=== PATIENT | female | born 1985 | race Caucasian/White ===

== ENCOUNTER 2020-02-22 03:02 | Emergency (ER) | payer OTHER, SELFPAY ==
--- NOTE | ~2020-02-22 | XR_ITS ---
EXAMINATION: XR chest 2V DATE: 02/22/2020 03:39 INDICATION: Left-sided chest pain TECHNIQUE: PA and lateral views of the chest were obtained. COMPARISON: None FINDINGS: The lungs are clear with no focal airspace opacities, pulmonary edema, pleural effusion or pneumothor ax. The cardiomediastinal silhouette is normal. Mild thoracic spondylosis. IMPRESSION: 1. No acute cardiopulmonary disease. Reviewed, dictated and finalized at location A.
[2020-02-22 03:09] VITALS: BP 158/79; PULSE 101; RESP 27; TEMP 36.7; O2SAT 100
--- NOTE | 2020-02-22 03:09 | PC.NURSE ---
PT REFUSED IV OR MEDICATIONS. MD YANES MADE AWARE.
--- NOTE | 2020-02-22 03:14 | ECG_ITS ---
Measurements Intervals Ellery Rate: 110 P: 57 CT: 178 QRS: 69 QRSD: 93 T: 15 QT: 330 QTc: 447 Interpretive Statements SINUS TACHYCARDIA NONSPECIFIC ST & T-WAVE ABNORMALITY- ANTEROLAT/INF LEADS BASELINE ARTIFACT- II, III, AVF, V3 ABNORMAL ECG Electronically Signed On 02-22-2020 7:11:34 CDT by Tomasz Mcgrath D.O.
--- NOTE | 2020-02-22 03:15 | ED.GENADULT ---
HPI - General Adult General Chief complaint: Anxiety Stated complaint: anxiety, cp Time Seen by Provider: 02/22/20 03:09 Source: RN notes reviewed History of Present Illness HPI narrative: Patient presents emergency department from home for anxiety. Patient states that this evening she was seen in her computer during calculus at work when she began to feel anxious and began to cry. She states that this was followed by tingling her hands and then pain in the left side of her chest felt like a coldness. Patient states that that time she began to read on Web [facility] about her symptoms and decided come to the ER for further evaluation. She denies any fevers or chills shortness of breath abdominal pain nausea vomiting or any other symptoms Related Data Home Medications Medication Instructions Recorded Confirmed dextroamphetamine-amphetamine PO 02/22/20 Allergies Allergy/AdvReac Type Severity Reaction Status Date / Time Opioids-Meperidine and Allergy Severe Dyspnea / Verified 02/22/20 03:12 Related SOB codeine Allergy Unknown TIGHT Verified 02/22/20 03:12 FEELING IN CHEST tramadol Allergy Unknown NAUSEATED Verified 02/22/20 03:12 Review of Systems Review of Systems: Narrative: Gen.: Denies fevers or chills ENT: Denies congestion Respiratory: Denies shortness of breath or cough CV: Reports chest pain GI: Denies abdominal pain nausea, emesis or diarrhea Musculoskeletal: Denies back pain or muscle pain Neuro: Denies numbness, tingling, weakness or focal weakness Skin: Denies rash Psych: Reports anxiety Except as documented, all other systems reviewed and negative PMFSH Past Medical History Medical History (Updated 02/22/20 @ 06:30 by Gordon Posadas DO) Patient denies significant medical history Social History Social History (Updated 02/22/20 @ 03:16 by Gordon Posadas DO) Smoking status: Never smoker Gender identity (if verbalized by the patient): Female Exam Narrative: Exam Narrative: APPEARANCE: Anxious in appearance, tearful in bed, EYES: EOMI HEENT: Normocephalic, atraumatic, OMM RESPIRATORY: No respiratory distress Clear to auscultation bilaterally with no rhonchi wheezing or rales. CARDIOVASCULAR: Regular rate and rhythm without murmurs rubs or gallops. ABDOMINAL: Soft, nontender, nondistended, no rebound or guarding MUSCULOSKELETAl: Moves all extremities. No clubbing, cyanosis or edema. NEURO: Awake and alert. Following commands, speech normal, no focal deficits SKIN:: Warm, dry. No rashes lesions or abrasions PSYCHIATRIC: Anxious in appearance Course Course Emergency Course: Patient refusing IV or Ativan Patient states she is feeling better this time Discussed with patient results of workup and diagnosis. Discussed need for follow-up with primary care, proper use of medication, and reasons to return to the emergency department. Patient understands and agrees to current treatment plan Vital Signs Vital signs: Vital Signs Temperature 98.1 F 02/22/20 03:09 Pulse Rate 101 H 02/22/20 03:09 Respiratory Rate 27 H 02/22/20 03:09 Blood Pressure 158/79 H 02/22/20 03:09 Pulse Oximetry 100 02/22/20 03:09 Temperature 98.1 F 02/22/20 03:09 Pulse Rate 76 02/22/20 06:01 Respiratory Rate 20 02/22/20 06:01 Blood Pressure 120/64 02/22/20 06:01 Pulse Oximetry 99 02/22/20 06:01 Medical Decision Making MDM Narrative Medical decision making narrative: Patient's EKGs and labs are without significant high risk changes. Cardiac risk factors reviewed. Patient is felt likely low risk for ACS and reasonable for further risk stratification testing as an outpatient. Pain was not sudden or maximal in onset without tearing or ripping quality. No other signs of symptoms suggest aortic dissection. A low-risk Wells criteria is noted, PE is felt to be unlikely. No pneumonia seen on evaluation today. Patient is felt to be a reasonable candidate for continued evaluation as an ou
[2020-02-22 03:34] LABS: Basophils Absolute Auto 0.1 K/mm3 (0.0-0.1); Basophils Percent Auto 0.7 % (0.2-1.2); Eosinophils Absolute Auto 0.6 K/mm3 (0-0.3); Eosinophils Percent Auto 5.8 % (0-4.4); Hematocrit 37.6 % (37.0-47.0); Hemoglobin 13.2 g/dL (12.0-15.0); Immature Granulocyte Absolute 0.03 K/mm3 (0.00-0.031); Immature Granulocyte Percent A 0.3 % (0-0.5); Lymphocytes Absolute Auto 4.34 K/mm3 (0.9-3.2); Mean Corpuscular HGB Conc 35.1 g/dl (32-36); Mean Corpuscular Volume 91.3 fl (80-100); Monocytes Absolute Auto 0.5 K/mm3 (0.1-0.6); Monocytes Percent Auto 5.7 % (2.6-8.5); Neutrophils Absolute Auto 3.9 K/mm3 (1.3-6.7); Neutrophils Percent Auto 41.5 % (45.5-73.1); Platelet Count Result 262 k/mm3 (150-375); Red Blood Count 4.12 M/mm3 (4.2-5.4); Red Cell Distribution Width 12.1 % (11.5-14.5); White Blood Count 9.4 K/mm3 (4.5-10.0)
[2020-02-22 03:46] LABS: Blood Urea Nitrogen 11 mg/dL (7-17); Calcium 9.3 mg/dL (8.4-10.2); Carbon Dioxide 24 mmol/L (22-30); Chloride 103 mmol/L (98-107); Estimated Glomerular Filt Rate > 60; Glucose 111 mg/dL (65-105); Sodium 136 mmol/L (137-145)
[2020-02-22 03:51] LABS: INR 0.9; Prothrombin Time 12.2 Seconds (11.1-14.7)
[2020-02-22 03:52] LABS: Partial Thromboplastin Time 25.5 SECONDS (22.3-36.8)
[2020-02-22 03:58] LABS: Troponin I < 0.012 ng/mL (0.000-0.034)
[2020-02-22 04:01] VITALS: BP 126/79; PULSE 84; RESP 17; O2SAT 96
[2020-02-22 05:01] VITALS: BP 125/69; PULSE 87; RESP 19; O2SAT 100
[2020-02-22 06:01] VITALS: BP 120/64; PULSE 76; RESP 20; O2SAT 99
[2020-02-22 06:21] LABS: Troponin I < 0.012 ng/mL (0.000-0.034)
== END 2020-02-22 06:32 | disposition home or self-care (01) ==
PROVIDERS: Emergency Provider Emergency Medicine
DX: F41.9 Anxiety disorder, unspecified (principal); R07.9 Chest pain, unspecified; R00.0 Tachycardia, unspecified
CPT/HCPCS: 36415; 71046; 80048; 81025; 84484; 85025; 85610; 85730; 93005; 99284

== ENCOUNTER 2020-04-24 22:05 | Emergency (ER) | payer OTHER, SELFPAY ==
[2020-04-24 22:42] VITALS: BP 153/78; PULSE 81; RESP 20; TEMP 36.7; O2SAT 98
--- NOTE | 2020-04-25 00:29 | ED.EAR ---
HPI - Ear Problem General Chief complaint: Ear Stated complaint: left ear infection, facial swelling. Time Seen by Provider: 04/24/20 23:59 History of Present Illness HPI Narrative: Patient is a 34-year-old female who presents ER with left ear pain. Ongoing for last 2 days. Diagnosed with otitis externa. Given eardrops to treat it. She has lymphadenopathy to the periauricular region. No fevers or chills or sweats. Caused by sleeping with her ear pods then. No drainage. Has muffled hearing. Has been taking ibuprofen for pain without significant relief. Related Data Home Medications Medication Instructions Recorded Confirmed dextroamphetamine-amphetamine PO 02/22/20 Allergies Allergy/AdvReac Type Severity Reaction Status Date / Time Opioids-Meperidine and Allergy Severe Dyspnea / Verified 02/22/20 03:12 Related SOB codeine Allergy Unknown TIGHT Verified 02/22/20 03:12 FEELING IN CHEST tramadol Allergy Unknown NAUSEATED Verified 02/22/20 03:12 Review of Systems Constitutional: Constitutional: Denies fever(s) and Denies weakness ENT: Denies dizziness Comments: Left ear pain with enlarged lymph nodes. Muffled hearing PMFSH Past Medical History Medical History (Updated 04/25/20 @ 00:33 by Juan José Wall MD) ADHD Anxiety Surgical History Surgical History (Updated 04/25/20 @ 00:30 by Juan José Wall MD) No history of previous surgery Social History Social History (Updated 02/22/20 @ 03:16 by Gordon Posadas DO) Smoking status: Never smoker Gender identity (if verbalized by the patient): Female Exam Narrative: Exam Narrative: GENERAL: Well-appearing, well-nourished, and in no acute distress. HEAD: Normocephalic, atraumatic. EYES: PERRLA and EOMI. ENT: Mucous membranes moist. Anterior posterior auricular lymphadenopathy on the left side. Edematous ear canal on the left side with tenderness with manipulation of the ear. Unable to visualize the tympanic membrane due to discomfort. Right ear canal and tympanic membrane normal appearance. NEURO: Alert and oriented x3. PSYCH: Normal mood and affect. Course Course Emergency Course: Patient reports she cannot take opiate medication because it makes her feel like she cannot breathe. Discussed we would not be prescribing any opiates then. Discussed the intervals which she should be taking ibuprofen as well as Tylenol to treat her pain. She may also try applying ice packs and cool rags. Vital Signs Vital signs: Vital Signs Temperature 98.1 F 04/24/20 22:42 Pulse Rate 81 04/24/20 22:42 Respiratory Rate 04/24/20 22:42 Blood Pressure 153/78 H 04/24/20 22:42 Pulse Oximetry 98 04/24/20 22:42 Temperature 98.1 F 04/24/20 22:42 Pulse Rate 81 04/24/20 22:42 Respiratory Rate 20 04/24/20 22:42 Blood Pressure 153/78 H 04/24/20 22:42 Pulse Oximetry 98 04/24/20 22:42 Medical Decision Making Vital Signs Vital Signs: Vital Signs Temperature 98.1 F 04/24/20 22:42 Pulse Rate 81 04/24/20 22:42 Respiratory Rate 04/24/20 22:42 Blood Pressure 153/78 H 04/24/20 22:42 Pulse Oximetry 98 04/24/20 22:42 Temperature 98.1 F 04/24/20 22:42 Pulse Rate 81 04/24/20 22:42 Respiratory Rate 04/24/20 22:42 Blood Pressure 153/78 H 04/24/20 22:42 Pulse Oximetry 98 04/24/20 22:42 Discharge Plan Discharge Clinical Impression: Otitis externa Patient Disposition: Home, Self-Care Condition: Stable Instructions: Otitis Externa (ED) Additional Instructions: You may take ibuprofen 800 mg every 8 hours and you may take Tylenol 1000 mg every 6 hours for your pain. Do not take it at any increased frequency then this. Return to the ER if you have worsening pain, you cannot keep down food or water, or you have extreme dizziness with nausea and vomiting. Prescriptions: No Action dextroamphetamine-amphetamine 30 mg capsule,extended release 24hr PO RF:
== END 2020-04-25 01:27 | disposition home or self-care (01) ==
PROVIDERS: Emergency Provider Emergency Medicine; PCP Family Medicine
DX: H60.92 Unspecified otitis externa, left ear (principal); F90.9 Attention-deficit hyperactivity disorder, unspecified type; F41.9 Anxiety disorder, unspecified
CPT/HCPCS: 99281

== ENCOUNTER 2020-05-07 01:20 | Emergency (ER) | payer OTHER, SELFPAY ==
[2020-05-07 01:22] VITALS: BP 149/92; PULSE 71; RESP 18; TEMP 36.4; O2SAT 100
--- NOTE | 2020-05-07 04:10 | ED.EAR ---
HPI - Ear Problem General Chief complaint: Ear Stated complaint: Right outer ear infection Time Seen by Provider: 05/07/20 01:56 Source: patient Mode of arrival: ambulatory Limitations: no limitations History of Present Illness HPI Narrative: This patient is a 34 year old female who presents for evaluation of right ear irritation. Patient states she just finished taking ciprofloxacin PO for a left otitis externa. She noticed yesterday she was having itching in her right ear. She also reports mild right ear pain. She states also noticed signs of lymph nodes. She denies dental pain, fever, nausea or vomiting. Related Data Home Medications Medication Instructions Recorded Confirmed dextroamphetamine-amphetamine PO 02/22/20 Allergies Allergy/AdvReac Type Severity Reaction Status Date / Time Opioids-Meperidine and Allergy Severe Dyspnea / Verified 05/07/20 01:28 Related SOB codeine Allergy Unknown TIGHT Verified 05/07/20 01:28 FEELING IN CHEST tramadol Allergy Unknown NAUSEATED Verified 05/07/20 01:28 Review of Systems Review of Systems: All systems reviewed & are unremarkable except as noted in HPI and below PMFSH Past Medical History Medical History (Updated 05/08/20 @ 00:00 by Kyle Jones) ADHD Anxiety Surgical History Surgical History (Updated 04/25/20 @ 00:30 by Juan José Wall MD) No history of previous surgery Social History Social History (Updated 02/22/20 @ 03:16 by Gordon Posadas DO) Smoking status: Never smoker Gender identity (if verbalized by the patient): Female Exam Const: General: no acute distress and alert Orientation/consciousness: patient oriented x3 HENMT: Head: normocephalic and atraumatic Ears: external ears normal, TM normal on the left, no periauricular adenopathy and TM abnormal dull on the right and erythematous; with no fluid behind the TM, not obstructed by cerumen and not perforated Face and sinus: face symmetric Mouth: Yes lip normal, Yes oropharynx normal and No trismus Teeth and gingiva: fair dentition Eyes: EOM: EOMs intact bilaterally Neck: Neck: normal visual inspection and no lymphadenopathy Resp: Effort & Inspection: normal respiratory effort Skin: Rashes: no rashes Neuro: General: patient oriented x3 and moves all extremities Course Reevaluation(s) Reevaluation #1: I discussed with patient that at this current time I do not see sign of definite out ear infection but she does have some redness and dull ness to TM Date: 05/07/20 Time: 04:16 Vital Signs Vital signs: Vital Signs Temperature 97.5 F L 05/07/20 01:22 Pulse Rate 71 05/07/20 01:22 Respiratory Rate 18 05/07/20 01:22 Blood Pressure 149/92 H 05/07/20 01:22 Pulse Oximetry 100 05/07/20 01:22 Temperature 97.2 F L 05/07/20 04:24 Pulse Rate 64 05/07/20 04:24 Respiratory Rate 16 05/07/20 04:24 Blood Pressure 150/95 H 05/07/20 04:24 Pulse Oximetry 98 05/07/20 04:24 Medical Decision Making Vital Signs Vital Signs: Vital Signs Temperature 97.5 F L 05/07/20 01:22 Pulse Rate 71 05/07/20 01:22 Respiratory Rate 18 05/07/20 01:22 Blood Pressure 149/92 H 05/07/20 01:22 Pulse Oximetry 100 05/07/20 01:22 Temperature 97.2 F L 05/07/20 04:24 Pulse Rate 64 05/07/20 04:24 Respiratory Rate 16 05/07/20 04:24 Blood Pressure 150/95 H 05/07/20 04:24 Pulse Oximetry 98 05/07/20 04:24 Discharge Plan Discharge Clinical Impression: Acute right otitis media Patient Disposition: Home, Self-Care Condition: Stable Instructions: Antibiotic Form, Earache (ED) Additional Instructions: I have prescribed ear drop for ear irritation. Take antibiotics for inner ear infection as well. Prescriptions: New amoxicillin-pot clavulanate [Augmentin] 875-125 mg tablet 1 tablet PO Q12H Qty: 14 RF: 0 acetic acid 2 % solution 3 drop RIGHT EAR Q6H Qty: 15 RF: 0 No Action dext
[2020-05-07 04:24] VITALS: BP 150/95; PULSE 64; RESP 16; TEMP 36.2; O2SAT 98
== END 2020-05-07 04:25 | disposition home or self-care (01) ==
PROVIDERS: Emergency Provider General Practice; PCP Family Medicine
DX: H66.91 Otitis media, unspecified, right ear (principal); F90.9 Attention-deficit hyperactivity disorder, unspecified type; F41.9 Anxiety disorder, unspecified
CPT/HCPCS: 99283

== ENCOUNTER 2021-03-14 04:24 | Emergency (ER) | payer OTHER, SELFPAY ==
[2021-03-14 04:32] VITALS: BP 140/109; PULSE 104; RESP 16; TEMP 36.7; O2SAT 99
--- NOTE | 2021-03-14 04:38 | ED.EXTPRO ---
HPI - Extremity Problem General Chief complaint: Extremity Problem,Nontraumatic Stated complaint: pain from buttocks to foot Time Seen by Provider: 03/14/21 04:37 Source: patient Mode of arrival: ambulatory Limitations: no limitations History of Present Illness HPI Narrative: Patient is a 35-year-old female who presents for evaluation of acute on chronic worsening of left-sided lower back pain. Patient reports that she initially injured her back in November when she fell backwards while walking her dogs. Patient states since that time she has been seen by her primary care provider who is helping to manage her piriformis pain. She states that she has nerve pain that usually travels down both legs, but she received a shot in her right leg that resolved those symptoms, and now only pain in the left buttock area persist. Pain starts in the left buttock area and travels down the side of the left leg into the top of the foot. She denies saddle anesthesia, difficulty with ambulation or urinary incontinence. No difficulty with bowel movements. She has been ambulatory. Patient states she was unable to sleep tonight thus prompting her visit to the emergency department. She states that she believes to her new job with [employer] which involves heavy lifting has recently exacerbated her symptoms. She has been taking cyclobenzaprine and ibuprofen without much improvement in her symptoms. Related Data Home Medications Medication Instructions Recorded Confirmed dextroamphetamine-amphetamine PO 02/22/20 Allergies Allergy/AdvReac Type Severity Reaction Status Date / Time Opioids-Meperidine and Allergy Severe Dyspnea / Verified 03/14/21 04:47 Related SOB codeine Allergy Unknown TIGHT Verified 03/14/21 04:47 FEELING IN CHEST tramadol Allergy Unknown NAUSEATED Verified 03/14/21 04:47 Review of Systems Review of Systems: Narrative: CONSTITUTIONAL: Denies fever, chills, or sweats. CARDIOVASCULAR: Denies chest pain, palpitations, or edema. RESPIRATORY: Denies cough or dyspnea. GASTROINTESTINAL: Denies abdominal pain, nausea, vomiting, or diarrhea. GENITOURINARY: Denies dysuria or hematuria. SKIN: Denies rash or itching. MUSCULOSKELETAL: Reports left-sided lower back pain NEUROLOGIC: Denies headache, numbness, or weakness. [facility] Past Medical History Medical History (Updated 03/14/21 @ 05:25 by Jamia Barillas MD) ADHD Anxiety Radiculopathy due to lumbar intervertebral disc disorder Surgical History Surgical History No history of previous surgery Social History Social History Smoking status: Never smoker Gender identity (if verbalized by the patient): Female Exam Narrative: Exam Narrative: GENERAL: Awake, alert, conversant HEAD: Normocephalic, atraumatic. EYES: PERRLA and EOMI. ENT: Nares clear, no rhinorrhea or epistaxis. Mucous membranes moist. NECK: Supple. CHEST: No respiratory distress, breathing even and non labored HEART: Regular rate, sinus rhythm ABDOMEN:Non distended, non tender EXTREMITIES: Normal range of motion. No edema. SKIN: Warm, dry, no rash. MSK: Positive left SI joint tenderness which reproduces pain, no midline lumbar tenderness NEURO:No focal deficits. Alert and oriented x3. Ambulatory with a narrow based steady gait. Intact EHL/FHL. Intact distal sensation. Course Vital Signs Vital signs: Vital Signs Temperature 36.7 C 03/14/21 04:32 Pulse Rate 104 H 03/14/21 04:32 Respiratory Rate 16 03/14/21 04:32 Blood Pressure 140/109 H 03/14/21 04:32 Pulse Oximetry 99 03/14/21 04:32 Temperature 36.7 C 03/14/21 04:32 Pulse Rate 104 H 03/14/21 04:32 Respiratory Rate 16 03/14/21 04:32 Blood Pressure 140/109 H 03/14/21 04:32 Pulse Oximetry 99 03/14/21 04:32 MDM - Extremity (Nontraumatic) MDM Narrative Medical decision making narrative:
[2021-03-14] MEDS: KETOROLAC (*BKC) 60 MG/2 ML VIAL 30 MG IM (05:33)
== END 2021-03-14 05:42 | disposition home or self-care (01) ==
PROVIDERS: Emergency Provider Emergency Medicine; PCP Family Medicine
DX: M51.16 Intervertebral disc disorders with radiculopathy, lumbar region (principal); F90.9 Attention-deficit hyperactivity disorder, unspecified type; F41.9 Anxiety disorder, unspecified
CPT/HCPCS: 96372; 99283; J1885

== ENCOUNTER 2021-03-22 02:33 | Emergency (ER) | payer OTHER, SELFPAY ==
[2021-03-22 02:36] VITALS: BP 137/96; PULSE 130; RESP 20; TEMP 36.7; O2SAT 99
--- NOTE | 2021-03-22 04:56 | ED.GENADULT ---
HPI - General Adult General Chief complaint: Extremity Problem,Nontraumatic Stated complaint: cramping to bilat upper legs Time Seen by Provider: 03/22/21 04:41 History of Present Illness HPI narrative: Patient is a 35-year-old female presents emerged from with chief complaint of pain in bilateral legs. The patient reports she has pain in the gluteal region that radiates down her leg. The patient reports she been seen at [place] was given a shot of Solu-Medrol reports her pain has worsened since then patient denies bowel or bladder dysfunction denies paresthesias in her feet denies foot drop Related Data Home Medications Medication Instructions Recorded Confirmed dextroamphetamine-amphetamine PO 02/22/20 Allergies Allergy/AdvReac Type Severity Reaction Status Date / Time Opioids-Meperidine and Allergy Severe Dyspnea / Verified 03/14/21 04:47 Related SOB codeine Allergy Unknown TIGHT Verified 03/14/21 04:47 FEELING IN CHEST tramadol Allergy Unknown NAUSEATED Verified 03/14/21 04:47 Review of Systems Review of Systems: A 10 system review of systems was completed on the patient and is negative except for what is stated in the HPI. Nursing and ancillary documentation was reviewed. [facility] Past Medical History Medical History ADHD Anxiety Radiculopathy due to lumbar intervertebral disc disorder Surgical History Surgical History No history of previous surgery Social History Social History Smoking status: Never smoker Gender identity (if verbalized by the patient): Female Exam Narrative: GENERAL: Well-appearing, well-nourished, and in no acute distress. HEAD: Normocephalic, atraumatic. EYES: PERRLA and EOMI. ENT: Nares clear, no rhinorrhea or epistaxis. Mucous membranes moist. NECK: Supple. CHEST: Clear to auscultation. No respiratory distress. HEART: Regular rate and rhythm. No murmur heard. Normal peripheral pulses. ABDOMEN: Soft, nontender, nondistended, normal active bowel sounds. EXTREMITIES: Normal range of motion. No edema. Tenderness to bilateral SI joint SKIN: Warm, dry, no rash. NEURO: No focal deficits. Alert and oriented x3. PSYCH: Normal mood and affect. Course Vital Signs Vital signs: Vital Signs Temperature 36.7 C 03/22/21 02:36 Pulse Rate 130 H 03/22/21 02:36 Respiratory Rate 20 03/22/21 02:36 Blood Pressure 137/96 H 03/22/21 02:36 Pulse Oximetry 99 03/22/21 02:36 Temperature 36.7 C 03/22/21 02:36 Pulse Rate 130 H 03/22/21 02:36 Respiratory Rate 20 03/22/21 02:36 Blood Pressure 137/96 H 03/22/21 02:36 Pulse Oximetry 99 03/22/21 02:36 Medical Decision Making Vital Signs Vital Signs: Vital Signs Temperature 36.7 C 03/22/21 02:36 Pulse Rate 130 H 03/22/21 02:36 Respiratory Rate 03/22/21 02:36 Blood Pressure 137/96 H 03/22/21 02:36 Pulse Oximetry 99 03/22/21 02:36 Temperature 36.7 C 03/22/21 02:36 Pulse Rate 130 H 03/22/21 02:36 Respiratory Rate 03/22/21 02:36 Blood Pressure 137/96 H 03/22/21 02:36 Pulse Oximetry 99 03/22/21 02:36 Discharge Plan Discharge Clinical Impression: Bilateral sciatica Patient Disposition: Home, Self-Care Condition: Stable Instructions: Antibiotic Form, Sciatica (ED), Piriformis Syndrome (ED) Prescriptions: New orphenadrine citrate 100 mg tablet extended release 100 mg PO Q12H Qty: 20 RF: 0 meloxicam 15 mg tablet 15 mg PO DAILY Qty: 14 RF: 0 No Action amoxicillin-pot clavulanate [Augmentin] 875-125 mg tablet 1 tablet PO Q12H Qty: 14 RF: 0 acetic acid 2 % solution 3 drop RIGHT EAR Q6H Qty: 15 RF: 0 dextroamphetamine-amphetamine 30 mg capsule,extended release 24hr PO RF: 0 lidocaine 4 % adhesive patch,medicated 1 pa
[2021-03-22] MEDS: KETOROLAC (*BKC) 60 MG/2 ML VIAL IM (05:53)
[2021-03-22 06:40] VITALS: BP 127/72; PULSE 90; RESP 18; O2SAT 98
== END 2021-03-22 06:49 | disposition home or self-care (01) ==
LOC: ANHED 05:13
PROVIDERS: Emergency Provider Emergency Medicine
DX: M54.42 Lumbago with sciatica, left side (principal); M54.41 Lumbago with sciatica, right side; F41.9 Anxiety disorder, unspecified
CPT/HCPCS: 96372; 99283; J1885

== ENCOUNTER 2021-03-24 02:02 | Emergency (ER) | payer OTHER, SELFPAY ==
--- NOTE | ~2021-03-24 | CT_ITS ---
EXAMINATION: CT lumbar spine wo con DATE: 03/24/2021 03:05 INDICATION: Leg weakness TECHNIQUE: Computed tomography (CT) of the lumbar spine was performed without intravenous contrast. A utomated exposure control and iterative reconstruction technique were employed. The dose-length produ ct was 1022.38 mGy-cm. COMPARISON: None FINDINGS: Alignment is normal. Vertebral body heights are normal. No fracture. Moderate disc height loss at L4- L5 and mild disc height loss at L3-L4. Visualized paravertebral soft tissues are unremarkable. Menstr ual cup versus contraceptive cervical cap the vaginal vault surrounding the cervix. The following dis c levels are specifically discussed: T11-T12: The disc does not extend beyond the endplate margin. There is mild bilateral facet joint ost eoarthritis. There is no neural foraminal stenosis. There is no central canal stenosis. T12-L1: The disc does not extend beyond the endplate margin. There is mild bilateral facet joint oste oarthritis. There is no neural foraminal stenosis. There is no central canal stenosis. L1-L2: The disc does not extend beyond the endplate margin. There is mild bilateral facet joint osteo arthritis. There is no neural foraminal stenosis. There is no central canal stenosis. L2-L3: Disc is mildly bulging. There is mild right and minimal left facet joint osteoarthritis. There is no neural foraminal stenosis. There is mild central canal stenosis. L3-L4: Disc is bulging. There is mild bilateral facet joint osteoarthritis. There is minimal bilatera l neural foraminal stenosis. There is mild central canal stenosis. L4-L5: Disc is bulging with superimposed large disc extrusion, the margins of which are difficult to definitively distinguished but which appears to result in severe central canal stenosis. There is mil d bilateral facet joint osteoarthritis. There is mild bilateral neural foraminal stenosis. L5-S1: Disc is minimally bulging. There is mild right and minimal left facet joint osteoarthritis. Th ere is no neural foraminal stenosis. There is no central canal stenosis. IMPRESSION: 1. Moderate disc height loss with large disc extrusion at L4-L5 which appears to result in severe radha tral canal stenosis. Dr. Dutta discussed these findings with Dr. Posadas at 11:20 AM. Reviewed, dictated and finalized at location A. IMPRESSION: 1. Moderate disc height loss with large disc extrusion at L4-L5 which appears t o result in severe central canal stenosis. Dr. Dutta discussed these finding s with Dr. Posadas at 11:20 AM.
[2021-03-24 02:09] VITALS: BP 160/123; PULSE 86; RESP 18; TEMP 36.8; O2SAT 100
[2021-03-24 02:16] VITALS: BP 148/94; PULSE 74; RESP 18; O2SAT 100
--- NOTE | 2021-03-24 02:23 | ED.BACK ---
HPI - Back Pain/Injury General Chief Complaint: Fall <Oskar Mcgregor MD - Last Filed: 03/24/21 16:39> Stated Complaint: Unspecified <Oskar Mcgregor MD - Last Filed: 03/24/21 16:39> Time Seen by Provider: 03/24/21 02:09 <Oskar Mcgregor MD - Last Filed: 03/24/21 16:39> History of Present Illness HPI Narrative: 35 yo female w/ h/o anxiety presents to the ED for leg pain and falls. She has been having sciatica symptoms for a few weeks. She has had multiple ED visits as well as a visit to her PCP for these symptoms. She reports that last time she was seen she had some kind of injection and since that time everything has been worse. She reports that now she has bilateral numbness below the knees and she intermittently collapses. No back pain, fever, trauma. <Oskar Mcgregor MD - Last Filed: 03/24/21 16:39> Related Data Home Medications: Home Medications Medication Instructions Recorded Confirmed dextroamphetamine-amphetamine PO 02/22/20 <Oskar Mcgregor MD - Last Filed: 03/24/21 16:39> Allergies/Adverse Reactions: Allergies Allergy/AdvReac Type Severity Reaction Status Date / Time Opioids-Meperidine and Allergy Severe Dyspnea / Verified 03/14/21 04:47 Related SOB codeine Allergy Unknown TIGHT Verified 03/14/21 04:47 FEELING IN CHEST tramadol Allergy Unknown NAUSEATED Verified 03/14/21 04:47 <Oskar Mcgregor MD - Last Filed: 03/24/21 16:39> Review of Systems Review of Systems: All systems reviewed & are unremarkable except as noted in HPI and below <Oskar Mcgregor MD - Last Filed: 03/24/21 16:39> Constitutional: Constitutional: Denies fever(s) <Oskar Mcgregor MD - Last Filed: 03/24/21 16:39> Cardiovascular: Cardiovascular: Denies chest pain <Oskar Mcgregor MD - Last Filed: 03/24/21 16:39> Respiratory: Respiratory: Denies dyspnea <Oskar Mcgregor MD - Last Filed: 03/24/21 16:39> Musculoskeletal: Musculoskeletal: Denies back pain <Oskar Mcgregor MD - Last Filed: 03/24/21 16:39> Neurologic: Denies dizziness, Reports numbness and Denies weakness <Oskar Mcgregor MD - Last Filed: 03/24/21 16:39> [facility] Past Medical History Medical History: Medical History ADHD Anxiety Radiculopathy due to lumbar intervertebral disc disorder <Oskar Mcgregor MD - Last Filed: 03/24/21 16:39> Surgical History Surgical History: Surgical History No history of previous surgery <Oskar Mcgregor MD - Last Filed: 03/24/21 16:39> Social History Social History: Social History Smoking status: Never smoker Gender identity (if verbalized by the patient): Female <Oskar Mcgregor MD - Last Filed: 03/24/21 16:39> Exam Const: General: healthy appearing, no acute distress and alert <Oskar Mcgregor MD - Last Filed: 03/24/21 16:39> Orientation/consciousness: patient oriented x3 <Oskar Mcgregor MD - Last Filed: 03/24/21 16:39> HENMT: Head: normal to inspection <Oskar Mcgregor MD - Last Filed: 03/24/21 16:39> Resp: Effort & Inspection: normal respiratory effort <Oskar Mcgregor MD - Last Filed: 03/24/21 16:39> Auscultation: clear to auscultation bilaterally <Oskar Mcgregor MD - Last Filed: 03/24/21 16:39> Cardio: Rate: regular rate <Oskar Mcgregor MD - Last Filed: 03/24/21 16:39> Rhythm: regular rhythm <Oskar Mcgregor MD - Last Filed: 03/24/21 16:39> Back/Spine/Pelvis: Thoracic/Lumbar Spine: No paraspinal muscle tenderness, No thoracic spinal tenderness, No lumbar spinal tenderness and straight leg raise positive (bilaterally) <Oskar Mcgregor MD - Last Filed: 03/24/21 16:39> Skin: General skin exam: normal color <Oskar Mcgregor MD - Last Filed: 03/24/21 16:39> Neuro: Genera
--- NOTE | 2021-03-24 04:40 | PC.NURSE ---
Pt not given prednisone, states that she is already on taper prednisone. Dr. Mcgregor requests to hold the medication.
== END 2021-03-24 04:44 | disposition home or self-care (01) ==
PROVIDERS: Emergency Provider Emergency Medicine; PCP Nurse Practitioner Family
DX: M51.16 Intervertebral disc disorders with radiculopathy, lumbar region (principal); M48.061 Spinal stenosis, lumbar region without neurogenic claudication; F90.9 Attention-deficit hyperactivity disorder, unspecified type; F41.9 Anxiety disorder, unspecified
CPT/HCPCS: 72131; 99284